=== PATIENT | female | born 1980 | race Caucasian/White ===

== ENCOUNTER 2016-10-24 19:46 | Emergency (ER) | payer BC ==
--- NOTE | 2016-10-24 20:33 | RAD ---
INDICATION: Left ankle injury. TECHNIQUE: 3 views of the left ankle were obtained. FINDINGS: Soft tissue swelling is noted along the anterolateral aspect of the ankle. No fracture is seen. Joint spaces appear maintained. IMPRESSION: SOFT TISSUE SWELLING, NO FRACTURE IS SEEN.
[2016-10-24] MEDS ORDERED: HYDROcodone/ACETAMIN 5-325 MG* 1 TAB PO ONE ×2 (20:50→21:32)
--- NOTE | 2016-10-24 20:57 | ED ---
Lower Extremity - HPI Summary HPI Summary: 36 female presents with complaints of left ankle pain and injury after rolling it on a curb around 3:30pm today. Patient states she has had multiple sprains in the same ankle due to an injury however they usually do not hurt her as much as this one. She took 600mg of ibuprofen around 6pm without relief. Patient states she has been unable to bear weight or put any pressure on it. Describes pain to be aching and stiff. She admits to some swelling and bruising. Denies numbness and tingling. No other injuries, did not hit her head and no other complaints at this time. - History of Current Complaint Chief Complaint: EDExtremityLower Stated Complaint: LEFT ANKLE PAIN Time Seen by Provider: 10/24/16 20:04 Hx Obtained From: Patient Mechanism Of Injury: Twisted Onset of Pain: Immediate Onset/Duration: Worse Since Severity Initially: Moderate Severity Currently: Moderate Pain Intensity: 8 Pain Scale Used: 0-10 Numeric Timing: Constant Location: Is Discrete @ - left ankle/foot Character Of Pain: Sharp, Aching, Stiffness Associated Signs And Symptoms: Positive: Swelling, Bruising Aggravating Factor(s): Standing, Ambulation, Weight Bearing Alleviating Factor(s): Rest Able to Bear Weight: No - Allergies/Home Medications Allergies/Adverse Reactions: Allergies Allergy/AdvReac Type Severity Reaction Status Date / Time Penicillins [PCN] Allergy Hives Verified 10/24/16 19:53 PMH/Surg Hx/FS Hx/Imm Hx Endocrine/Hematology History: Denies: Hx Diabetes Respiratory History: Denies: Hx Asthma - Cancer History Hx Chemotherapy: No Hx Radiation Therapy: No - Immunization History Immunizations Up to Date: Yes Infectious Disease History: No Infectious Disease History: Denies: Traveled Outside the [place] in Last 30 Days - Family History Known Family History: Positive: None - Social History Alcohol Use: Rare Substance Use Type: Reports: None Smoking Status (MU): Former Smoker Review of Systems Constitutional: Negative Cardiovascular: Negative Respiratory: Negative Positive: Arthralgia, Myalgia, Decreased ROM, Edema - left ankle Positive: Bruising - left ankle Neurological: Negative All Other Systems Reviewed And Are Negative: Yes Physical Exam Triage Information Reviewed: Yes Vital Signs On Initial Exam: Initial Vitals Temp Pulse Resp BP Pulse Ox 98.1 F 90 18 133/89 98 10/24/16 19:52 10/24/16 19:52 10/24/16 19:52 10/24/16 19:52 10/24/16 19:52 Vital Signs Reviewed: Yes Appearance: Positive: Well-Appearing, Well-Nourished, Pain Distress - mild, moderate when moving it Skin: Positive: Warm, Skin Color Reflects Adequate Perfusion, Dry, Soft, Other - ecchymosis at left ankle and anterior foot with some mild edema. no obvious signs of deformity, crepitus or step off.. Negative: Cold, Numb, Erythema @ Head/Face: Positive: Normal Head/Face Inspection Eyes: Positive: Conjunctiva Clear ENT: Positive: Hearing grossly normal Neck: Positive: Supple, Nontender Respiratory/Lung Sounds: Positive: Clear to Auscultation, Breath Sounds Present. Negative: Rales, Rhonchi, Wheezes Cardiovascular: Positive: Normal, RRR, Pulses are Symmetrical in both Upper and Lower Extremities - 2+ pedal pulses. Negative: Murmur, Rub Musculoskeletal: Positive: Limited @ - left ankle with any movement due to pain , Pain @ - left ankle with palpation and movement, also tender to palpation over left anterior/ lateral foot, with ecchymosis., Edema Left - ankle/foot. Negative: Interruption @ Neurological: Positive: Normal, Sensory/Motor Intact - sensation intact, Alert, Oriented to Person Place, Time, CN Intact II-III, Reflexes Intact, Unable to Assess Gait - due to patient having pain from ankle injury Psychiatric: Positive: Normal, Affect/Mood Appropriate AVPU Assessment: Alert Diagnostics - Vital Signs Vital Signs Temp Pulse Resp BP Pulse Ox 10/24/16 19:52 98.1 F 90 18 133/89 98 - Laboratory Lab Statement: Any lab studies that have been ordered have been reviewed, and results considered in the medical decision making process. - Radiology left ankle Xray Interpretation: Positive (See Comments) - soft tissue swelling. no fractures noted left foot Xray Interpretation: No Acute Changes - no evidence of fracture Radiology Interpretation Completed By: Radiologist Re-Evaluation - Re-Evaluation First Eval Re-Evaluation Time: 21:30 Change: Improved - some relief after pain medication Lower Extremity Course/Dx - Course Course Of Treatment: given norco for pain, already took ibuprofen 600mg at 6pm and not due for another dose. Ice. X-rays of left foot and ankle obtained, negative for fracture. Brace applied, crutches and continue pain management. RICE. Follow up with PCP to ensure improvement. Non weight bearing until seen by PCP. Aware of worsening signs and symptoms to watch out for. - Diagnoses Differential Diagnosis/HQI/PQRI: Positive: Arthritis, Contusion, Dislocation, Fracture (Closed), Sprain, Strain Provider Diagnoses: Left ankle sprain Discharge - Discharge Plan Condition: Stable Disposition: HOME Patient Education Materials: Ankle Sprain (ED) Forms: *Work Release Referrals: Jena Mullen NP [Primary Care Provider] - Additional Instructions: Do not bear weight on left ankle until symptoms improve and follow up with primary care doctor. Wear brace and use crutches. Continue ibuprofen every 6 hours for pain and inflammation, take with food. Take [place] as needed for pain in between ibuprofen doses. Elevate and ice multiple times daily, as much as possible. If new symptoms develop, symptoms worsen or are not improving within the next 2 weeks please seek medical attention.
--- NOTE | 2016-10-24 21:13 | RAD ---
INDICATION: Left foot injury. TECHNIQUE: 2 views of the left foot were obtained. FINDINGS: The bones are normal alignment. No fracture is seen. Joint spaces appear maintained. IMPRESSION: NO EVIDENCE FOR FRACTURE.
[2016-10-24 22:15] VITALS: BP 141/89
== END 2016-10-24 22:09 | disposition home or self-care (01) ==
LOC: ED 19:46
DX: S93.402A Sprain of unspecified ligament of left ankle, initial encounter (principal); X50.1XXA Overexertion from prolonged static or awkward postures, initial encounter; Y93.9 Activity, unspecified; Y92.9 Unspecified place or not applicable; Z88.0 Allergy status to penicillin; Z87.891 Personal history of nicotine dependence
CPT/HCPCS: 99282

== ENCOUNTER 2019-03-08 08:57 | Emergency (ER) | payer BC, OTHER ==
[2019-03-08] MEDS ORDERED: Ibuprofen TAB* 600 MG PO ONE (09:00)
[2019-03-08] MEDS ORDERED: Tetan/Diph/Pertus SYR(Tdap)* 0.5 ML SYR(BOOSTRIX) use SYR contains LATEX IM ONE (09:19)
[2019-03-08 09:45] VITALS: BP 138/87
--- NOTE | 2019-03-08 11:28 | ED ---
Upper Extremity Pain - HPI Summary HPI Summary: Patient is a 38-year-old female who is otherwise healthy presenting to the ED with pain to the right hand as well as a laceration to the distal tip of the right finger from a paper shredder while at work. Patient states her finger he came stuck in the shredder and felt like she "macerated it." On arrival into the ED, no bleeding is noted. Full range of motion, however with some amount of pain. Sensation intact. She endorses a 1 cm small abrasion to the middle right distal tip of the finger, overlying the R DIP. Pt appears anxious on arrival, diaphoretic. Endorses 2/10 pain. - History of Current Complaint Chief Complaint: EDExtremityUpper Stated Complaint: FINGER INJURY PER EMS Time Seen by Provider: 03/08/19 08:59 Hx Obtained From: Patient Mechanism Of Injury: Direct Blow Onset/Duration: Started Hours Ago Timing: Constant Severity Initially: Moderate Severity Currently: Moderate Character: Aching Aggravating Factor(s): Nothing Alleviating Factor(s): Nothing Associated Signs & Symptoms: Positive: Negative Related History: Dominant Hand Right - Risk Factors Non-Orthopedic Risk Factor: Negative DVT Risk Factors: Negative Septic Arthritis Risk Factor: Negative - Allergies/Home Medications Allergies/Adverse Reactions: Allergies Allergy/AdvReac Type Severity Reaction Status Date / Time MS Penicillins [PCN] Allergy Hives Verified 10/24/16 19:53 PMH/Surg Hx/FS Hx/Imm Hx Previously Healthy: Yes Endocrine/Hematology History: Denies: Hx Diabetes Respiratory History: Denies: Hx Asthma Musculoskeletal History: Denies: Hx Rheumatoid Arthritis, Hx Osteoporosis - Cancer History Hx Chemotherapy: No Hx Radiation Therapy: No - Immunization History Date of Tetanus Vaccine: unsure tetanus date Hx Pertussis Vaccination: No Immunizations Up to Date: Yes Infectious Disease History: No Infectious Disease History: Denies: Traveled Outside the [place] in Last 30 Days - Family History Known Family History: Positive: None - Social History Occupation: Employed Full-time Lives: With Family Alcohol Use: Rare Hx Substance Use: No Substance Use Type: Reports: None Smoking Status (MU): Former Smoker Review of Systems Negative: Fever, Chills, Fatigue, Skin Diaphoresis Negative: Palpitations, Chest Pain Negative: Shortness Of Breath, Cough Genitourinary: Negative Positive: no symptoms reported, see HPI Negative: Arthralgia, Myalgia Positive: Other - R middle finger distal tip 1cm abrasion Neurological: Negative All Other Systems Reviewed And Are Negative: Yes Physical Exam Triage Information Reviewed: Yes Vital Signs On Initial Exam: Initial Vitals Temp Pulse Resp BP Pulse Ox 98.3 F 74 18 169/98 99 03/08/19 09:00 03/08/19 09:00 03/08/19 09:00 03/08/19 09:00 03/08/19 09:00 Vital Signs Reviewed: Yes Appearance: Positive: Well-Appearing, Well-Nourished Skin: Positive: Warm, Other - R middle finger distal tip 1cm abrasion Head/Face: Positive: Normal Head/Face Inspection Eyes: Positive: EOMI, Conjunctiva Clear Neck: Positive: Supple, No Lymphadenopathy Respiratory/Lung Sounds: Positive: Clear to Auscultation, Breath Sounds Present Cardiovascular: Positive: RRR, Pulses are Symmetrical in both Upper and Lower Extremities Musculoskeletal: Positive: Strength/ROM Intact Neurological: Positive: Speech Normal Psychiatric: Positive: Affect/Mood Appropriate AVPU Assessment: Alert Procedures - Sedation Patient Received Moderate/Deep Sedation with Procedure: No Diagnostics - Vital Signs Vital Signs Temp Pulse Resp BP Pulse Ox 03/08/19 09:35 98.5 F 71 18 138/87 99 03/08/19 09:00 98.3 F 74 18 169/98 99 - Laboratory Lab Statement: Any lab studies that have been ordered have been reviewed, and results considered in the medical decision making process. Course/Dx - Course Course Of Treatment: On arrival into the ED, no bleeding is noted. Full range of motion, however with some amount of pain. Sensation intact. She endorses a 1 cm small abrasion to the middle right distal tip of the finger, overlying the R DIP. Pt appears anxious on arrival, diaphoretic. Endorses 2/10 pain. X-ray obtained which is negative for any acute findings. Small 1cm abrasion to the distal tip of the middle R finger. This was cleansed and bandaged. Pt dx wtih abrasion. - Diagnoses Differential Diagnosis/HQI/PQRI: Positive: Laceration, Strain, Sprain Provider Diagnoses: Abrasion Discharge ED - Sign-Out/Discharge Documenting (check all that apply): Patient Departure - Discharge Plan Condition: Stable Disposition: HOME Patient Education Materials: Abrasion (ED) Forms: *Work Release Referrals: No Primary Care Phys,NOPCP [Primary Care Provider] - Additional Instructions: Keep the wound covered x 24 hours Ibuprofen 600mg three times daily as needed for discomfort - Billing Disposition and Condition Condition: STABLE Disposition: Home - Attestation Statements Provider Attestation: pt seen by midlevel provider independently, based on their assessment, it was not necessary to present the case to me but I was available for consultation. I did not form a physician-patient relationship with the patient. The chart however, has been reviewed. am signing this note strictly in an administrative capacity.
== END 2019-03-08 09:35 | disposition home or self-care (01) ==
LOC: ED 08:57
DX: S60.412A Abrasion of right middle finger, initial encounter (principal); Z23 Encounter for immunization; W31.89XA Contact with other specified machinery, initial encounter; Y92.89 Other specified places as the place of occurrence of the external cause; Y99.0 Civilian activity done for income or pay; Z87.891 Personal history of nicotine dependence; Z88.0 Allergy status to penicillin
CPT/HCPCS: 90471; 90715; 99282; A9270-GY